=== PATIENT | male | born 1960 | race Caucasian/White ===

== ENCOUNTER 2016-05-03 07:03 | Emergency (ER) | payer SELFPAY ==
[2016-05-03] MEDS ORDERED: Dexamethasone IV* 4 MG/ML 1 ML (4 MG) IM ONE (07:22)
--- NOTE | 2016-05-03 07:28 | ED ---
Throat Pain/Nasal Congestion - History of Current Complaint Time Seen by Provider: 05/03/16 07:07 Hx Obtained From: Patient Onset/Duration: Gradual Onset Severity: Moderate Associated Signs And Symptoms: Positive: Dysphagia, Sinus Discomfort, Nasal Discharge Cough: Nonproductive - Epiglottits Risk Factors Epiglottis Risk Factors: Negative - Allergies/Home Medications Allergies/Adverse Reactions: Allergies Allergy/AdvReac Type Severity Reaction Status Date / Time No Known Allergies Allergy Verified 05/03/16 07:23 PMH/Surg Hx/FS Hx/Imm Hx Cardiovascular History: Reports: Hx Hypertension Infectious Disease History: No Infectious Disease History: Denies: Traveled Outside the [place] in Last 30 Days - Social History Alcohol Use: Rare Substance Use Type: Reports: None Smoking Status (MU): Never Smoked Tobacco Review of Systems Positive: Fever - resolved.. Negative: Chills, Fatigue Eyes: Negative Positive: Sore Throat, Nasal Discharge. Negative: Dental Pain Cardiovascular: Negative Positive: Cough. Negative: Shortness Of Breath Gastrointestinal: Negative Musculoskeletal: Negative Skin: Negative Neurological: Negative All Other Systems Reviewed And Are Negative: Yes Physical Exam Vital Signs On Initial Exam: Initial Vitals Temp Pulse Resp BP Pulse Ox 98 F 95 20 135/99 100 05/03/16 07:15 05/03/16 07:15 05/03/16 07:15 05/03/16 07:15 05/03/16 07:15 Vital Signs Reviewed: Yes Appearance: Positive: Well-Appearing, No Pain Distress - obvious pain with swallowing. Skin: Positive: Warm, Dry Head/Face: Positive: Normal Head/Face Inspection, Other - mild sinus percussion tenderness.. Negative: TMJ Tenderness Eyes: Positive: Normal ENT: Positive: Normal ENT inspection, Hearing grossly normal, Pharyngeal erythema, Nasal congestion, TMs normal. Negative: Nasal drainage, Tonsillar swelling, Tonsillar exudate, Trismus, Muffled/hoarse voice, Dental tenderness Dental: Negative: Percussion Tenderness @, Dental Fracture @, Abscess @, Cellulitis @ Neck: Positive: Supple, Nontender, No Lymphadenopathy Respiratory/Lung Sounds: Positive: Clear to Auscultation, Breath Sounds Present. Negative: Rales, Wheezes Cardiovascular: Positive: Normal Abdomen Description: Positive: Nontender, No Organomegaly Bowel Sounds: Positive: Present Musculoskeletal: Positive: Normal. Negative: Pain @, Edema Left, Edema Right Neurological: Positive: Normal Psychiatric: Positive: Normal Diagnostics - Vital Signs Vital Signs Temp Pulse Resp BP Pulse Ox 05/03/16 07:15 98 F 95 20 135/99 100 - Laboratory Lab Statement: Any lab studies that have been ordered have been reviewed, and results considered in the medical decision making process. EENT Course/Dx - Course Course Of Treatment: no worrisome features to suggest serious invasive bacterial infection. - Differential Diagnoses Differential Diagnoses: Epiglottitis, Dmitriy's Angina, Mastoiditis, Odontogenic Pain, Otitis Externa, Otitis Media, Perforated TM, Periodontic Abscess, Periodontic Disease, Peritonsillar Ulcer, Pharyngitis, Temporal Arteritis, Trigeminal Neuralgia, TMJ Syndrome, URI/Bronchitis - Diagnoses Provider Diagnoses: Pharyngitis, Sinusitis Discharge - Discharge Plan Condition: Good Disposition: HOME Prescriptions: Amoxicillin CAP* 500 mg PO TID #21 cap Dexamethasone TAB* [Decadron TAB*] 4 mg PO BID #5 tab Patient Education Materials: Pharyngitis (ED) Referrals: Cristina Wallace MD [Primary Care Provider] -
[2016-05-03 07:53] VITALS: BP 134/84
== END 2016-05-03 07:47 | disposition home or self-care (01) ==
LOC: UCCORT 07:03
DX: J32.9 Chronic sinusitis, unspecified (principal); J02.9 Acute pharyngitis, unspecified
CPT/HCPCS: 96372; 99202; G0463; J1100